=== PATIENT | male | born 1975 | race Caucasian/White ===

== ENCOUNTER 2021-02-18 00:39 | Inpatient (IN) | payer BC, OTHER ==
[~2021-02-18] VITALS: Ht 175.3 cm; Wt 76.1 kg
[2021-02-18] MEDS ORDERED: DISKETS40 MG PO (02:24)
[2021-02-18 02:57] LABS: HEMOGLOBIN 12.8 gm/dl (14.0-17.5); RED BLOOD COUNT 3.74 M/UL (4.20-5.50); WHITE BLOOD COUNT 4.3 K/UL (4.5-11.0)
[2021-02-18 03:54] LABS: BUN/CREATININE RATIO 25 (0-10)
[2021-02-18 09:47] LABS: HEMOGLOBIN 12.3 gm/dl (14.0-17.5); RED BLOOD COUNT 3.51 M/UL (4.20-5.50); WHITE BLOOD COUNT 4.9 K/UL (4.5-11.0)
[2021-02-18 16:09] LABS: HEMOGLOBIN 11.7 gm/dl (14.0-17.5); RED BLOOD COUNT 3.38 M/UL (4.20-5.50); WHITE BLOOD COUNT 4.6 K/UL (4.5-11.0)
[2021-02-19 03:06] LABS: HEMOGLOBIN 12.8 gm/dl (14.0-17.5); RED BLOOD COUNT 3.66 M/UL (4.20-5.50); WHITE BLOOD COUNT 4.2 K/UL (4.5-11.0)
[2021-02-19 03:38] LABS: BUN/CREATININE RATIO 17 (0-10)
[2021-02-19 08:14] LABS: HIV SCREEN 4TH GENERATION WRFX Non Reactive (Non Reactive)
[2021-02-19 08:14] LABS: HIV SCREEN 4TH GENERATION WRFX Non Reactive (Non Reactive)
[2021-02-19 11:15] LABS: HBSAG SCREEN Negative (Negative); HEP A AB, IGM Negative (Negative); HEP B CORE AB, IGM Negative (Negative); HEP C VIRUS AB <0.1 (0.0-0.9)
[2021-02-19 14:12] LABS: HEMATOCRIT 32.7 % (37.5-51.0); HEMATOLOGY COMMENTS: Note: (.)
[2021-02-19 15:12] LABS: TREPONEMA PALLIDUM ANTIBODIES Non Reactive (Non Reactive)
[2021-02-20 04:05] LABS: HEMOGLOBIN 13.1 gm/dl (14.0-17.5); RED BLOOD COUNT 3.74 M/UL (4.20-5.50)
[2021-02-20 04:15] LABS: BUN/CREATININE RATIO 25 (0-10)
[2021-02-21 03:15] LABS: HEMOGLOBIN 13.2 gm/dl (14.0-17.5); RED BLOOD COUNT 3.71 M/UL (4.20-5.50); WHITE BLOOD COUNT 5.3 K/UL (4.5-11.0)
[2021-02-21 03:37] LABS: BUN/CREATININE RATIO 31 (0-10)
[2021-02-22 03:32] LABS: HEMOGLOBIN 12.7 gm/dl (14.0-17.5); RED BLOOD COUNT 3.6 M/UL (4.20-5.50); WHITE BLOOD COUNT 5.6 K/UL (4.5-11.0)
[2021-02-22 03:51] LABS: BUN/CREATININE RATIO 29 (0-10)
[2021-02-22] MEDS ORDERED: THERAGRAN M TAB1 EA PO (09:48)
[2021-02-22] MEDS ORDERED: NICOTINE PATCH1 EAC2 TOP (09:48)
[2021-02-22] MEDS ORDERED: LOPRESSOR 25 MG25 MG PO (09:48)
== END 2021-02-22 12:33 | disposition home or self-care (01) | DRG 813 ==
LOC: CCU 00:39 → MED SURG 4 02-20 12:40
PROVIDERS: Internal Medicine Infectious Disease; Registered Nurse; ADMIT Internal Medicine
DX: D69.6 Thrombocytopenia, unspecified (principal); F10.139 Alcohol abuse with withdrawal, unspecified; F11.20 Opioid dependence, uncomplicated; Z20.822 Contact with and (suspected) exposure to COVID-19; E87.6 Hypokalemia; F17.210 Nicotine dependence, cigarettes, uncomplicated; R00.0 Tachycardia, unspecified; G89.29 Other chronic pain; F19.10 Other psychoactive substance abuse, uncomplicated; Z91.14 Patient's other noncompliance with medication regimen; Z83.3 Family history of diabetes mellitus
CPT/HCPCS: 36415; 80053; 80074; 80307; 82140; 82550; 82553; 82607; 82746; 82747; 83735; 83921; 84100; 84132; 84439; 84443; 84484; 85025; 85027; 86780; 87389; 93005; C9113; J2060; J3411; J3475; J7030; U0002

== ENCOUNTER 2021-04-11 23:47 | Emergency (ER) | payer BC ==
[~2021-04-11 23:47] MED LIST: DISKETS40 MG PO; LOPRESSOR 25 MG25 MG PO; NICOTINE PATCH1 EAC2 TOP; THERAGRAN M TAB1 EA PO
[2021-04-12 01:06] LABS: HEMOGLOBIN 16.6 gm/dl (14.0-17.5); RED BLOOD COUNT 4.54 M/UL (4.20-5.50); WHITE BLOOD COUNT 4.3 K/UL (4.5-11.0)
[2021-04-12 01:37] LABS: BUN/CREATININE RATIO 21 (0-10)
== END 2021-04-12 02:45 | disposition home or self-care (01) ==
LOC: ER1 23:47
PROVIDERS: Physician Assistant
DX: S22.31XA Fracture of one rib, right side, initial encounter for closed fracture (principal); F10.129 Alcohol abuse with intoxication, unspecified; F17.210 Nicotine dependence, cigarettes, uncomplicated; Z79.899 Other long term (current) drug therapy; W19.XXXA Unspecified fall, initial encounter
CPT/HCPCS: 71101; 80053; 82550; 82553; 83874; 84484; 85025; 96374; 96375; 99283; G0480; J1100; J1885

== ENCOUNTER 2021-07-13 20:25 | Emergency (ER) | payer OTHER ==
[2021-07-13 21:49] LABS: HEMOGLOBIN 16.8 gm/dl (14.0-17.5); RED BLOOD COUNT 4.59 M/UL (4.20-5.50)
[2021-07-13 22:25] LABS: BUN/CREATININE RATIO 15 (0-10)
== END 2021-07-14 04:00 | disposition home or self-care (01) ==
LOC: ER1 20:25
PROVIDERS: Physician Assistant
DX: F11.23 Opioid dependence with withdrawal (principal); F10.20 Alcohol dependence, uncomplicated; Y90.7 Blood alcohol level of 200-239 mg/100 ml; F17.210 Nicotine dependence, cigarettes, uncomplicated
CPT/HCPCS: 80053; 83690; 83735; 84100; 85025; 93005; 96374; 99283; G0480; J2405